=== PATIENT | female | born 1990 | race Caucasian/White ===

== ENCOUNTER 2016-10-23 17:07 | Emergency (ER) | payer OTHER ==
[~2016-10-23 17:07] MED LIST: ATROVENT INH S2.5 ML INH; HABITROL 21 MG P1 EA TD; LEVAQUIN500 MG PO; MEDROL DOSEPAK 24 MG PO; SYMBICORT 160-1 INHA INH; TAMIFLU75 MG PO
== END 2016-10-23 19:55 | disposition home or self-care (01) ==
LOC: ER1 17:07
DX: L02.214 Cutaneous abscess of groin (principal); F17.210 Nicotine dependence, cigarettes, uncomplicated
CPT/HCPCS: 10061; 87070; 87205; 96372; 99283; J2270

== ENCOUNTER 2021-03-01 03:46 | Emergency (ER) | payer OTHER ==
[~2021-03-01 03:46] MED LIST changes: +BACTRIM DS TAB1 EACH PO
[2021-03-01 06:43] LABS: HEMOGLOBIN 11.1 gm/dl (12.3-15.3); RED BLOOD COUNT 4.01 M/UL (4.00-5.10); WHITE BLOOD COUNT 5.7 K/UL (4.5-11.0)
[2021-03-01 06:52] LABS: BUN/CREATININE RATIO 8 (0-10)
== END 2021-03-01 07:00 | disposition home or self-care (01) ==
LOC: ER1 03:46
PROVIDERS: Family Medicine
DX: B34.9 Viral infection, unspecified (principal); Z20.822 Contact with and (suspected) exposure to COVID-19
CPT/HCPCS: 71045; 80053; 83615; 85025; 86140; 99283; U0002

== ENCOUNTER 2021-05-10 21:57 | Emergency (ER) | payer OTHER ==
[2021-05-10 23:42] LABS: HEMOGLOBIN 11.9 gm/dl (12.3-15.3); RED BLOOD COUNT 4.38 M/UL (4.00-5.10); WHITE BLOOD COUNT 8.7 K/UL (4.5-11.0)
[2021-05-11] MEDS ORDERED: PERCOCET 5-3251 EACH PO (01:02)
[2021-05-11] MEDS ORDERED: ZOFRAN ODT 4 MG4 MG SL (01:02)
== END 2021-05-11 01:19 | disposition home or self-care (01) ==
LOC: ER1 21:57
PROVIDERS: Emergency Medicine
DX: O03.9 Complete or unspecified spontaneous abortion without complication (principal)
CPT/HCPCS: 76817; 84702; 85025; 86900; 86901; 99284

== ENCOUNTER 2021-05-11 07:35 | Emergency (ER) | payer OTHER ==
[~2021-05-11 07:35] MED LIST changes: +PERCOCET 5-3251 EACH PO; +ZOFRAN ODT 4 MG4 MG SL
[2021-05-11 08:19] LABS: HEMOGLOBIN 11.4 gm/dl (12.3-15.3); RED BLOOD COUNT 4.35 M/UL (4.00-5.10); WHITE BLOOD COUNT 7.1 K/UL (4.5-11.0)
[2021-05-11 08:49] LABS: BUN/CREATININE RATIO 12 (0-10)
== END 2021-05-11 10:31 | disposition home or self-care (01) ==
LOC: ER1 07:35
PROVIDERS: Family Medicine
DX: R10.32 Left lower quadrant pain (principal)
CPT/HCPCS: 76830; 80053; 83605; 85025; 86140; 86850; 86900; 86901; 96374; 96375; 99284; J2270; J2405

== ENCOUNTER 2021-10-24 02:58 | Emergency (ER) | payer OTHER ==
[2021-10-24 04:30] LABS: HEMOGLOBIN 11.2 gm/dl (12.3-15.3); RED BLOOD COUNT 4.15 M/UL (4.00-5.10); WHITE BLOOD COUNT 9.1 K/UL (4.5-11.0)
[2021-10-24 04:56] LABS: BUN/CREATININE RATIO 7 (0-10)
== END 2021-10-24 08:02 | disposition home or self-care (01) ==
LOC: ER1 02:58
PROVIDERS: Student in an Organized Health Care Education/Training Program
DX: R07.89 Other chest pain (principal); J45.909 Unspecified asthma, uncomplicated; I51.9 Heart disease, unspecified; Z86.79 Personal history of other diseases of the circulatory system; Z95.0 Presence of cardiac pacemaker
CPT/HCPCS: 71045; 80048; 82550; 82553; 84484; 85025; 93005; 96374; 96375; 99285; J1885; J2405

== ENCOUNTER → 2022-05-03 | Outpatient (CLI) | payer BC, OTHER ==
[~2022-05-03] MED LIST changes: +CYANOCOBAL1000 MCG/1 INJ; +FERROUS SULFAT325 M2 PO; +FOLIC ACID 1 MG1 MG PO; +IBU-200200 MG PO; +TYLENOL325 MG PO
[2022-05-03 12:44] LABS: HEMOGLOBIN 12.1 gm/dl (12.3-15.3); RED BLOOD COUNT 4.25 M/UL (4.00-5.10); WHITE BLOOD COUNT 6.6 K/UL (4.5-11.0)
== END ==
LOC: OPSV2 12:05
PROVIDERS: Obstetrics & Gynecology
DX: Z01.812 Encounter for preprocedural laboratory examination (principal)
CPT/HCPCS: 81001; 85025